=== PATIENT | male | born 1995 | race African-American/Black ===

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

== ENCOUNTER 2017-02-18 16:47 | Emergency (ER) | payer OTHER ==
[~2017-02-18] VITALS: Ht 182.9 cm; Wt 81.6 kg
[~2017-02-18 16:47] MED LIST: CLARITIN-D 241 EACH PO; GUAIFENESIN1200 MG PO; NKM; PROMETHAZINE-C118 M1 ORAL; ZITHROMAX250 MG ORAL
[2017-02-18 17:02] VITALS: BP 109/65
[2017-02-18] MEDS ORDERED: IBUPROFEN600 MG ORAL (17:10)
[2017-02-18 17:13] VITALS: BP 109/65
--- NOTE | 2017-02-18 20:59 | Emergency Room Report ---
History of Present Illness General Chief Complaint: Headache Source: Patient Present Illness HPI The patient is a 21-year-old male presenting for headache which began yesterday. Patient states he awoke with a headache which is described as 4/10 dull ache and encompasses the entire head. Patient denies history of migraines or other headaches. Pt does admit to increased life stressors. The pain does not radiate. Pain is worse with yawning and touch. The patient denies any symptoms including N, V, F, chills, dizziness, blurred vision, photophobia, neck pain/stiffness Allergies: Coded Allergies: No Known Allergies (Unverified , 09/14/12) Patient History Past Medical History: see triage record Pertinent Family History: none Reviewed Nursing Documentation: PMH: Agreed, PSxH: Agreed Nursing Documentation-PMH Hx Asthma: Yes Review of Systems All Other Systems: negative except mentioned in HPI Physical Exam Vital Signs Date Time Temp Pulse Resp B/P Pulse Ox O2 Delivery O2 Flow Rate FiO2 02/18/17 16:53 98.1 64 17 109/65 98 Room Air Sp02 EP Interpretation: reviewed, normal General Appearance: no apparent distress, alert, GCS 15, non-toxic Head: normocephalic, atraumatic Eyes: bilateral eye PERRL, bilateral eye normal inspection ENT: hearing grossly normal, normal pharynx, no angioedema, normal voice, uvula midline Neck: full range of motion, supple, no bony tend, supple/symm/no masses Musculoskeletal: back normal, gait/station normal, normal range of motion, non- tender Neurologic: alert, oriented x3, responsive, motor strength/tone normal, sensory intact, normal gait, speech normal Psychiatric: judgement/insight normal, memory normal, mood/affect normal, no suicidal/homicidal ideation Skin: normal color, no rash, warm/dry, well hydrated Lymphatic: no adenopathy Medical Decision Making PA Attestation Dr. Mahoney is my supervising physician. Patient management was discussed with my supervising physician Diagnostic Impression: Primary Impression: Tension headache ER Course The patient is a 21-year-old male presenting for headache which began yesterday Differential diagnoses include but not limited to Migraine, tension headache, anxiety PE: Vitals are within normal limits. no apparent distress. There is tenderness to palpation over bilateral temples. No obvious deformity. PERRL. Neck is soft and supple. Full active range of motion Otherwise HEENT exam is unremarkable Patient is given Motrin for pain with good relief Patient will be discharged home with a prescription for Motrin and will follow up with PMD Last Vital Signs Date Time Temp Pulse Resp B/P Pulse Ox O2 Delivery O2 Flow Rate FiO2 02/18/17 17:14 98.0 02/18/17 17:13 17 109/65 98 Room Air 02/18/17 16:53 64 Status: improved Disposition: HOME, SELF-CARE Condition: Improved Scripts Ibuprofen* (MOTRIN*) 600 Mg Tablet 600 MG ORAL Q6H Y for For Pain, #10 TAB Prov: ROD CHOUDHURY 02/18/17 Referrals: [facility],REFERRING (PCP) Patient Instructions: Tension Headache Additional Instructions: I discussed my findings with the patient. All questions and concerns have been answered. Treatment and medication compliance have been addressed. I advised the patient that they need to follow up with PMD in 3-5 days. Return to ED if symptoms worsen, new symptoms arise, or if needed for any reason. Patient verbalized understanding of discharge instructions. ROD CHOUDHURY Feb 18, 2017 20:59
== END 2017-02-18 17:18 | disposition home or self-care (01) ==
LOC: EMR 17:07
DX: G44.209 Tension-type headache, unspecified, not intractable (principal); J45.909 Unspecified asthma, uncomplicated
CPT/HCPCS: 99283

== ENCOUNTER 2017-03-12 03:01 | Emergency (ER) | payer OTHER ==
[~2017-03-12] VITALS: Ht 183.5 cm; Wt 81.6 kg
[~2017-03-12 03:01] MED LIST changes: +IBUPROFEN600 MG ORAL
--- NOTE | 2017-03-12 03:29 | Emergency Room Report ---
History of Present Illness General Chief Complaint: Chest Pain Source: Patient Present Illness HPI Patient presents with several hours of right-sided chest pain. It woke him up from sleep. He stated initially was 7/10 and now is 3/10. Pleuritic. States doesn't radiate. Denies any fevers or productive cough. Has a history of asthma when he was young but has not heard himself wheezing. Earlier today he was exerting himself quite forcefully. 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 He denies any swelling in his extremities. No meds taken. Medics came to evaluate the patient at home. He stated they say he was breathing too fast at home and declined to take him to the hospital. His mom brought him to the emergency department. He denies anxiety or stress at this time. No palpitations, NVD, rashes, headache. Allergies: Coded Allergies: No Known Allergies (Unverified , 09/14/12) Patient History Past Medical History: see triage record Social History: Denies: alcohol use, smoking Social History Narrative Works at [employer] Reviewed Nursing Documentation: PMH: Agreed, PSxH: Agreed Nursing Documentation-PMH Past Medical History: No History, Except For Hx Asthma: Yes Review of Systems All Other Systems: negative except mentioned in HPI Physical Exam Vital Signs Date Time Temp Pulse Resp B/P Pulse Ox O2 Delivery O2 Flow Rate FiO2 03/12/17 03:04 97.9 88 18 103/64 96 Room Air Sp02 EP Interpretation: reviewed, normal General Appearance: well appearing, no apparent distress, GCS 15 Head: normocephalic Eyes: bilateral eye PERRL, bilateral eye normal inspection ENT: moist mucus membranes Neck: supple Respiratory: lungs clear, normal breath sounds, other - Chest wall tenderness right anteriorly tenderness to palpation recreates the pain Cardiovascular #1: regular rate, rhythm, no edema Cardiovascular #2: 2+ radial (L) Gastrointestinal: normal inspection, normal bowel sounds, non tender, no mass, non-distended Musculoskeletal: back normal, gait/station normal, normal range of motion, no calf tenderness Neurologic: alert, oriented x3, grossly normal Skin: normal inspection, warm/dry Medical Decision Making Diagnostic Impression: Primary Impression: Chest pain Qualified Codes: R07.9 - Chest pain, unspecified ER Course Patient presents with right-sided chest pain. Pleuritic in nature but also tenderness to palpation. Differential includes costochondritis, muscle strain, pneumothorax amongst others. Evaluation will be with an EKG, labs and chest x- ray. The patient will be treated with Toradol. The patient is low risk for pulmonary embolus and acute cardiac event. EKG and CXR indicated. Also will perform labs. EKG and CXR unremakrable. Labs unremarkable (min elevated CK). (No urine.) Pain improved The patient is stable for outpatient observation and treatment. Laboratory Tests Test 03/12/17 03:30 White Blood Count 9.3 K/UL (4.8-10.8) Red Blood Count 4.58 M/UL (4.70-6.10) L Hemoglobin 14.1 G/DL (14.2-18.0) L Hematocrit 41.5 % (42.0-52.0) L Mean Corpuscular Volume 91 FL (80-99) Mean Corpuscular Hemoglobin 30.9 PG (27.0-31.0) Mean Corpuscular Hemoglobin Concent 34.0 G/DL (32.0-36.0) Red Cell Distribution Width 11.7 % (11.6-14.8) Platelet Count 198 K/UL (150-450) Mean Platelet Volume 7.3 FL (6.5-10.1) Neutrophils (%) (Auto) 65.0 % (45.0-75.0) Lymphocytes (%) (Auto) 26.0 % (20.0-45.0) Monocytes (%) (Auto) 7.3 % (1.0-10.0) Eosinophils (%) (Auto) 0.9 % (0.0-3.0) Basophils (%) (Auto) 0.9 % (0.0-2.0) Sodium Level 141 mEQ/L (135-145) Potassium Level 3.7 mEQ/L (3.4-4.9) Chloride Level 102 mEQ/L (98-107) Carbon Dioxide Level 29 mEQ/L (20-30) Anion Gap 10 (5-15) Blood Urea Nitrogen 10 mg/dL (7-23) Creatinine 1.1 mg/dL (0.7-1.2) Estimate Glomerular Filtration Rate > 60 mL/min (>60) Glucose Level 101 mg/dL (74-106) Calcium Level 9.1 mg/dL (8.6-10.2) Total Bilirubin 0.6 mg/dL (0.0-1.2) Aspartate Amino Transferase (AST) 22 U/L (5-40) Alanine Aminotransferase (ALT) 18 U/L (3-41) Alkaline Phosphatase 72 U/L (40-129) Total Creatine Kinase 259 U/L (38-174) H Total Protein 7.0 g/dL (6.6-8.7) Albumin 4.1 g/dL (3.5-5.2) Globulin 2.9 g/dL Albumin/Globulin Ratio 1.4 (1.0-2.7) EKG Diagnostic Results Rate: normal Rhythm: NSR ST Segments: no acute changes - sinus arrhythmia Rhythm Strip Diag. Results EP Interpretation: yes Rhythm: NSR, no PVC's, no ectopy, other - sius arrhythmia Chest X-Ray Diagnostic Results EP Interpretation: Yes Findings: no consolidation, no effusion, no pneumothorax, no acute cardiopulmonary disease Number of Views: 1 Last Vital Signs Date Time Temp Pulse Resp B/P Pulse Ox O2 Delivery O2 Flow Rate FiO2 03/12/17 05:09 97.9 80 17 97/71 97 Room Air Status: improved Disposition: HOME, SELF-CARE Condition: Improved Scripts Tramadol Hcl* (ULTRAM*) 50 Mg Tablet 50 MG ORAL Q6H Y for For Pain, #10 TAB 0 Refills Prov: Shaun Trevino M.D. 03/12/17 Ibuprofen* (MOTRIN*) 600 Mg Tablet 600 MG ORAL Q6H Y for For Pain, #20 TAB Prov: Shaun Trevino M.D. 03/12/17 Referrals: [facility],REFERRING (PCP) Shaun Trevino M.D. Mar 12, 2017 03:29
[2017-03-12] MEDS ORDERED: Ketorolac 30mg Inj IV ONE (03:30)
[2017-03-12 03:52] LABS: BASOPHILS % (AUTO) 0.9 % (0.0-2.0); EOSINOPHILS % (AUTO) 0.9 % (0.0-3.0); MEAN CORPUSCULAR HEMOGLOBIN 30.9 PG (27.0-31.0); MEAN CORPUSCULAR VOLUME 91 FL (80-99); MEAN PLATELET VOLUME 7.3 FL (6.5-10.1); MONOCYTES % (AUTO) 7.3 % (1.0-10.0); PLATELET COUNT 198 K/UL (150-450); RED BLOOD COUNT 4.58 M/UL (4.70-6.10); RED CELL DISTRIBUTION WIDTH 11.7 % (11.6-14.8); WHITE BLOOD COUNT 9.3 K/UL (4.8-10.8)
[2017-03-12 04:11] LABS: ALANINE AMINOTRANSFERASE 18 U/L (3-41); ALBUMIN/GLOBULIN RATIO 1.4 (1.0-2.7); ANION GAP 10 (5-15); ASPARTATE AMINO TRANSFERASE 22 U/L (5-40); CALCIUM 9.1 mg/dL (8.6-10.2); CARBON DIOXIDE 29 mEQ/L (20-30); CHLORIDE 102 mEQ/L (98-107); CREATININE 1.1 mg/dL (0.7-1.2); GLOMERULAR FILTRATION RATE > 60 mL/min (>60); HEMOLYSIS 6; POTASSIUM 3.7 mEQ/L (3.4-4.9); SODIUM 141 mEQ/L (135-145)
[2017-03-12 04:19] VITALS: BP 97/71
[2017-03-12] MEDS ORDERED: TRAMADOL HCL50 MG ORAL (05:00)
[2017-03-12] MEDS ORDERED: IBUPROFEN600 MG ORAL (05:00)
[2017-03-12 05:09] VITALS: BP 97/71
--- NOTE | 2017-03-12 11:44 | Diagnostic Imaging Report ---
Indication: Chest pain Technique: One view of the chest Comparison: 06/17/2016 Findings: Lungs and pleural spaces are clear. Heart size is normal. No significant change This agrees with the preliminary interpretation provided by the emergency room physician Impression: No acute process
== END 2017-03-12 05:09 | disposition home or self-care (01) ==
LOC: EMR 03:21
DX: R07.9 Chest pain, unspecified (principal); J45.909 Unspecified asthma, uncomplicated
CPT/HCPCS: 36415; 71010; 80053; 82550; 85025; 93005; 96374; 99284; J1885

== ENCOUNTER 2017-04-14 20:15 | Emergency (ER) | payer OTHER ==
[~2017-04-14] VITALS: Ht 183.5 cm; Wt 78.5 kg
[~2017-04-14 20:15] MED LIST changes: +TRAMADOL HCL50 MG ORAL
--- NOTE | 2017-04-14 20:25 | Emergency Room Report ---
History of Present Illness General Chief Complaint: To Be Triaged Source: Patient Present Illness HPI 21YOM with body aches/chills, headache only when sneezing. States last year he was here and told "I have migraines" because "I had headache in a ring around my head." Denies fever, SOB, chest pain, abd pain, urinary complaints. Denies sick contacts. Got flu vaccine this year. Taking Dayquill and Nyquill without much improvement. Allergies: Coded Allergies: No Known Allergies (Unverified , 09/14/12) Patient History Past Medical History: none Past Surgical History: none Pertinent Family History: none Social History: Denies: alcohol use, drug use, smoking Immunizations: UTD Reviewed Nursing Documentation: PMH: Agreed, PSxH: Agreed Nursing Documentation-PMH Hx Asthma: Yes Review of Systems All Other Systems: negative except mentioned in HPI Physical Exam Sp02 EP Interpretation: reviewed, normal General Appearance: normal inspection, well appearing, no apparent distress, alert, GCS 15, non-toxic, other - Well appearing Head: normocephalic, atraumatic Eyes: bilateral eye EOMI, bilateral eye PERRL ENT: normal ENT inspection, hearing grossly normal, normal pharynx, no angioedema, normal voice, TMs + canals normal, nasal congestion Neck: normal inspection, full range of motion, supple, no bony tend Respiratory: normal inspection, lungs clear, normal breath sounds, no respiratory distress, no retraction, no accessory muscle use, no wheezing, speaking full sentences, chest symmetrical, palpation of chest normal Cardiovascular #1: regular rate, rhythm, no edema Gastrointestinal: normal inspection, normal bowel sounds, non tender, soft, no guarding, no hernia Genitourinary: no CVA tenderness Musculoskeletal: normal inspection, back normal, normal range of motion, Jeison' s Sign negative Neurologic: normal inspection, alert, oriented x3, responsive, quality assurance project manager III-XII nml as tested, motor strength/tone normal, speech normal Psychiatric: normal inspection, judgement/insight normal, mood/affect normal Skin: normal inspection, normal color, no rash Lymphatic: normal inspection Medical Decision Making Diagnostic Impression: Primary Impression: Influenza-like symptoms Additional Impression: Tension headache ER Course 21YOM with constellation of symptoms c/w flu like illness plus tension headache No sign or symptoms of bacterial infection in ears, oropharynx, lungs, abdomen Refused IV meds, Labs, IM meds Accepted PO analgesia in ED DC with flonase for sinus congestion, T#3 Advised to drink plenty of fluids Status: improved Disposition: HOME, SELF-CARE Scripts Fluticasone Propionate (Flonase Allergy Relief) 9.9 Ml [place].susp 9.9 ML NS BID for 7 Days, #1 UNIT Prov: CUAUHTEMOC ROLAND M.D. 04/14/17 Acetaminophen With Codeine (T#3) (TYLENOL #3 TAB*) Y Tab 1 TAB ORAL Q4H Y for pain, cough for 7 Days, #30 TAB Prov: CUAUHTEMOC ROLAND M.D. 04/14/17 CUAUHTEMOC ROLAND M.D. April 14, 2017 20:25
[2017-04-14 20:30] VITALS: BP 122/79
[2017-04-14] MEDS ORDERED: FLONASE ALLERG9.9 ML NS (20:34)
[2017-04-14] MEDS ORDERED: ACETAMINOPHEN-1 EAC1 ORAL (20:34)
[2017-04-14 20:41] VITALS: BP 122/79
[2017-04-14] MEDS ORDERED: Tylenol #3 tab (300mg/30mg) ORAL ONE (20:45)
== END 2017-04-14 20:45 | disposition home or self-care (01) ==
LOC: EMR 20:43
DX: J11.1 Influenza due to unidentified influenza virus with other respiratory manifestations (principal); G44.209 Tension-type headache, unspecified, not intractable; J45.909 Unspecified asthma, uncomplicated
CPT/HCPCS: 99284

== ENCOUNTER 2018-09-17 15:00 | Emergency (ER) | payer OTHER ==
[~2018-09-17] VITALS: Ht 182.9 cm; Wt 83.0 kg
[~2018-09-17 15:00] MED LIST changes: +ACETAMINOPHEN-1 EAC1 ORAL; +FLONASE ALLERG9.9 ML NS
[2018-09-17] MEDS ORDERED: Lidocaine 2% Visc 15ml soln ORAL ONE (15:30)
--- NOTE | 2018-09-17 15:30 | Emergency Room Report ---
History of Present Illness General Chief Complaint: General Complaint Source: Patient Present Illness HPI 22-year-old male patient presents ER complaining of throat discomfort for the past 3 days. Patient reports that he is not "having pain", just discomfort. Denies pain with swallowing. Denies fever, chest pain, shortness of breath, vomiting. Reports symptoms worse in the morning. Reports history of sneezing and allergies during this time. Reports "feels like something is stuck". Denies difficulty breathing. Denies swallowing foreign body or battery. States he wants to be checked for "thrush". Denies history of HIV. Denies past medical history. States has not taken any medication for relief of symptoms. Reports dry mouth in the morning. Allergies: Coded Allergies: No Known Allergies (Unverified , 09/14/12) Patient History Past Medical History: see triage record Reviewed Nursing Documentation: PMH: Agreed; PSxH: Agreed Nursing Documentation-PMH Past Medical History: No History, Except For Hx Asthma: Yes - childhood asthma Review of Systems All Other Systems: negative except mentioned in HPI Physical Exam Vital Signs Date Time Temp Pulse Resp B/P (MAP) Pulse Ox O2 Delivery O2 Flow Rate FiO2 09/17/18 15:04 98.1 66 18 126/65 97 Room Air Sp02 EP Interpretation: reviewed, normal General Appearance: well appearing, no apparent distress, alert, GCS 15, non- toxic Head: normocephalic, atraumatic Eyes: bilateral eye normal inspection, bilateral eye PERRL ENT: hearing grossly normal, normal pharynx, no angioedema, normal voice, TMs + canals normal, uvula midline, moist mucus membranes, nasal congestion, other Neck: full range of motion Respiratory: lungs clear, normal breath sounds, no rhonchi, no respiratory distress, no accessory muscle use, no wheezing, speaking full sentences Cardiovascular #1: regular rate, rhythm, no edema Musculoskeletal: back normal, digits/nails normal, gait/station normal, normal range of motion, non-tender Neurologic: alert, oriented x3, responsive, motor strength/tone normal, sensory intact Psychiatric: mood/affect normal Skin: no rash Lymphatic: no adenopathy Medical Decision Making PA Attestation Dr. Bautista is my supervising Physician whom patient management has been discussed with. Diagnostic Impression: Primary Impression: Sore throat Additional Impression: Sneezing ER Course Pt presents to ED c/o sore throat. DDX considered but are not limited to pharyngitis, laryngitis, URI, peritonsillar abscess, tonsillitis, epiglottitis. Low suspicion for peritonsillar abscess, no neck stiffness, no hot potato voice , no stridor. no fever, no drooling, no stridor, no hoarseness, no voice change, low suspicion for epiglottitis. Does not require imaging at this time. VITAL SIGNS are WNL, patient is afebrile. ER COURSE: Provided with viscous lidocaine. Physical exam benign. No signs of thrush or infection requiring abx treatment. Patient reports feeling better following administration of medication Salt water gargles Followup with PCP and discuss referral to ENT specialist. DISCHARGE: Rx provided for Sudafed Rx provided for Flonase Rx Tylenol for pain and fever symptoms At this time pt is stable for d/c to home. Patient is resting comfortably, in no acute distress, nontoxic appearing, talking without difficulty. Will provide with patient care instructions and any necessary prescriptions. Patient to take medication as instructed. Care plan and follow-up instructions provided. Patient questions asked and answered. Patient instructed to follow-up with primary care provider in 3 - 5 days. ER precautions given. Patient instructed to return to ER immediately for any new or worsening of symptoms including but not limited to intractable vomiting, difficulty breathing, inability to eat. - Please note that this Emergency Department Report was dictated using [employer]ar[employer] setter technology software, occasionally this can lead to erroneous entry secondary to interpretation by the dictation equipment. Last Vital Signs Date Time Temp Pulse Resp B/P (MAP) Pulse Ox O2 Delivery O2 Flow Rate FiO2 09/17/18 15:04 98.1 66 18 126/65 97 Room Air Disposition: HOME, SELF-CARE Condition: Stable Scripts Fluticasone Propionate (Flonase Allergy Relief) 9.9 Ml [place].susp 9.9 ML NS DAILY, #9.9 ML Prov: Chuck Foster 09/17/18 Guaifen/Phenyleph/Acetaminophn (Sudafed PE Pressure+Pain+Mucus) 1 Each Tablet 1 EACH PO BID, #24 TAB Prov: Chuck Foster 09/17/18 Acetaminophen* (TYLENOL EXTRA STRENGTH*) 500 Mg Tablet 500 MG ORAL Q8H PRN for Prn Headache/Temp > 101, #30 TAB 0 Refills Prov: Chuck Foster 09/17/18 Patient Instructions: Allergic Rhinitis, Sore Throat, [id number] Additional Instructions: Followup with primary care provider in 3 -5 days. Discuss referral to ENT specialist. Salt water gargles Take Tylenol for pain and fever symptoms Drink plenty of water. Take medications as directed. Patient questions asked and answered. ER precautions given, patient instructed to return to ER immediately for any new or worsening of symptoms including but not limited to intractable vomiting, difficulty breathing, inability to eat. Chuck Foster Sep 17, 2018 15:30
[2018-09-17 15:36] VITALS: BP 126/65
[2018-09-17] MEDS ORDERED: TYLENOL EXTRA500 MG ORAL (15:37)
[2018-09-17] MEDS ORDERED: FLONASE ALLERG9.9 ML NS (15:37)
[2018-09-17] MEDS ORDERED: SUDAFED PE PRE1 EAC3 PO (15:37)
[2018-09-17 16:06] VITALS: BP 126/65
== END 2018-09-17 16:08 | disposition home or self-care (01) ==
LOC: EMR 15:19
DX: R07.0 Pain in throat (principal); R06.7 Sneezing
CPT/HCPCS: 99283

== ENCOUNTER 2019-10-11 20:08 | Emergency (ER) | payer OTHER ==
[~2019-10-11] VITALS: Ht 182.9 cm; Wt 89.4 kg
[~2019-10-11 20:08] MED LIST changes: +SUDAFED PE PRE1 EAC3 PO; +TYLENOL EXTRA500 MG ORAL
[2019-10-11 20:25] VITALS: BP 128/74
--- NOTE | 2019-10-11 20:30 | Emergency Room Report ---
History of Present Illness General Chief Complaint: Sore Throat Source: Patient Present Illness HPI 23-year-old male with no symptom past medical history here complaining of 3 days of sore throat and fever. Complains of blood-tinged cough however denies hemoptysis. Denies chest pain, shortness of breath, wheezing, palpitation, abdominal pain, nausea vomiting. Also complains of a sore on the side of his tongue that reports that he bit his tongue few days ago and now is rating her pain 5 out of 10 without radiation. No pus drainage noted. Has not taken medication for symptom relief. Denies tobacco smoke, recent travel. Allergies: Coded Allergies: No Known Allergies (Unverified , 09/14/12) Patient History Past Medical History: see triage record Past Surgical History: unable to obtain Pertinent Family History: none Immunizations: UTD Reviewed Nursing Documentation: PMH: Agreed; PSxH: Agreed Nursing Documentation-PM Past Medical History: No History, Except For Hx Asthma: Yes - childhood asthma Review of Systems All Other Systems: negative except mentioned in HPI Physical Exam Vital Signs Date Time Temp Pulse Resp B/P (MAP) Pulse Ox O2 Delivery O2 Flow Rate FiO2 10/11/19 20:14 99.0 85 17 128/74 (92) 99 Room Air Sp02 EP Interpretation: reviewed, normal General Appearance: no apparent distress, alert, GCS 15, non-toxic Head: normocephalic, atraumatic Eyes: bilateral eye normal inspection, bilateral eye PERRL ENT: hearing grossly normal, no angioedema, normal voice, tonsillar swelling, pharyngeal erythema, tonsillar exudate, other - Aphthous ulcer noted on right lateral tongue Neck: full range of motion, supple, thyroid normal, no meningismus, supple/symm /no masses Respiratory: chest non-tender, lungs clear, normal breath sounds, no rhonchi, no respiratory distress, no retraction, no wheezing, speaking full sentences Cardiovascular #1: regular rate, rhythm, no edema, no murmur Gastrointestinal: non tender, soft Musculoskeletal: back normal, digits/nails normal, gait/station normal Psychiatric: normal inspection, judgement/insight normal Skin: no rash Lymphatic: normal inspection, no adenopathy Medical Decision Making PA Attestation Diagnosis and treatment plans were reviewed and discussed with my supervising physician Dr. Delgado Diagnostic Impression: Primary Impression: Strep pharyngitis Additional Impression: Aphthae, oral ER Course 23-year-old male with no symptom past medical history here complaining of 3 days of sore throat and fever. Complains of blood-tinged cough however denies hemoptysis. Denies chest pain, shortness of breath, wheezing, palpitation, abdominal pain, nausea vomiting. Also complains of a sore on the side of his tongue that reports that he bit his tongue few days ago and now is rating her pain 5 out of 10 without radiation. No pus drainage noted. Has not taken medication for symptom relief. Denies tobacco smoke, recent travel. Ddx considered but are not limited to: strep pharyngitis, URI, tonsillitis, peritonsillar abscess, influneza, aphthous ulcer, herpes virus Vital signs: are WNL, pt. is afebrile H&PE are most consistent with: Strep pharyngitis, aphthous ulcer ORDERS: Amoxicillin, Phenergan, lidocaine viscous ED INTERVENTIONS: None required at this time. DISCHARGE: At this time pt. is stable for d/c to home. Will provide printed patient care instructions, and any necessary prescriptions. Care plan and follow up instructions have been discussed with the patient prior to discharge. Patient to follow-up with her primary care provider, if worsening symptoms return to the emergency room, if starts to profusely have a lot of coughing as well as hemoptysis return to the emergency room as soon as possible. At this time lungs are clear to auscultation, patient in no distress, and not actively coughing. And reports that there was a streaks of blood in his phlegm and does report to smoking marijuana as well as eating a lot of spicy food Last Vital Signs Date Time Temp Pulse Resp B/P (MAP) Pulse Ox O2 Delivery O2 Flow Rate FiO2 10/11/19 20:25 99.0 85 17 128/74 99 Room Air Disposition: HOME, SELF-CARE Condition: Stable Scripts Lidocaine HCl 2% Viscous (Lidocaine HCl 2% Viscous) 100 Ml Solution 15 ML ORAL QID, #100 ML Prov: Stephanie Montiel 10/11/19 Promethazine Hcl (PROMETHAZINE HCL*) 6.25 Mg/5 Ml Syrup 5 ML ORAL Q6H, #120 ML 0 Refills Prov: Stephanie Montiel 10/11/19 Amoxicillin* (AMOXIL*) 500 Mg Capsule 500 MG ORAL EVERY 12 HOURS for 10 Days, #20 CAP Prov: Stephanie Montiel 10/11/19 Patient Instructions: Canker Sores, Pharyngitis Additional Instructions: Take medication as directed, follow-up with your primary care provider, if worsening symptoms return to the emergency room Stephanie Montiel Oct 11, 2019 20:30
[2019-10-11] MEDS ORDERED: LIDOCAINE VISC100 ML ORAL (20:33)
[2019-10-11] MEDS ORDERED: PROMETHAZI6.25 MG/1 ORAL (20:33)
[2019-10-11] MEDS ORDERED: AMOXICILLIN500 MG ORAL (20:33)
[2019-10-11 20:37] VITALS: BP 128/74
== END 2019-10-11 20:37 | disposition home or self-care (01) ==
LOC: EMR 20:30
DX: J02.0 Streptococcal pharyngitis (principal); K12.0 Recurrent oral aphthae
CPT/HCPCS: 99282